=== PATIENT | male | born 1960 | race Hispanic/Latino ===

== ENCOUNTER 2016-12-30 00:31 | Emergency (ER) | payer OTHER ==
[2016-12-30 00:32] VITALS: BMI 32.8
[2016-12-30 01:13] VITALS: BP 126/79; PULSE 80; RESP 16; O2SAT 96
--- NOTE | 2016-12-30 01:53 | C.PDOC ---
History Of Present Illness pt was scratched in left nare by his cat, which has all shots utd. No evidence of bleeding Time Seen by Provider: 12/30/16 01:53 Chief Complaint (Nursing): ENT Problem History Per: Patient History/Exam Limitations: None Onset/Duration Of Symptoms: Hrs Current Symptoms Are (Timing): Still Present Severity: Mild Pain Scale Rating Of: 2 Anticoagulant/Antiplatlet Use?: No Recent Aspirin Use: No Past Medical History Reviewed: Historical Data, Nursing Documentation, Vital Signs Vital Signs: Last Vital Signs Temp 999 F H 12/30/16 01:02 Pulse 80 12/30/16 01:02 Resp 16 12/30/16 01:02 BP 126/79 12/30/16 01:02 Pulse Ox 96 12/30/16 01:53 - Medical History PMH: Anxiety, Depression (H/O SUICIDE ATTEMPT), Fractures (both knees), HTN, Peripheral Edema, Post Traumatic Stress Disorder Denies: Chronic Kidney Disease Family History: States: No Known Family Hx - Social History Hx Alcohol Use: No (DENIED) Hx Substance Use: No (DENIED) - Immunization History Hx Influenza Vaccination: No Hx Pneumococcal Vaccination: No Review Of Systems Constitutional: Negative for: Fever, Chills ENT: Positive for: Nose Pain Physical Exam - Physical Exam Appears: Non-toxic, No Acute Distress Skin: Warm, Dry Nose: No Discharge, No Epistaxis, Other (? small excorition left nare, septal area) ED Course And Treatment O2 Sat by Pulse Oximetry: 96 Disposition Counseled Patient/Family Regarding: Studies Performed, Diagnosis, Need For Followup, Rx Given - Disposition Referrals: Ko Nye MD [Staff Provider] - Casey Mosquera MD [Staff Provider] - Disposition: HOME/ ROUTINE Disposition Time: 01:53 Condition: FAIR Prescriptions: Amoxicillin/Clavulanate [Augmentin 875 MG-125 MG] 1 tab PO BID #14 tab Instructions: Abrasion (ED) - Clinical Impression Clinical Impression: Excoriation
[2016-12-30] MEDS ORDERED: Amoxicillin-Clav 875-125 mg Tab PO STA (01:57)
[2016-12-30] MEDS ORDERED: Amoxicillin-Clav 875-125 mg Tab PO ONE (02:09)
[2016-12-30 02:22] VITALS: TEMP 99
== END 2016-12-30 02:25 | disposition home or self-care (01) ==
LOC: C.ER 00:31
DX: S00.31XA Abrasion of nose, initial encounter (principal); W55.03XA Scratched by cat, initial encounter; Y92.009 Unspecified place in unspecified non-institutional (private) residence as the place of occurrence of the external cause

== ENCOUNTER 2017-08-07 06:29 | Day surgery (SDC) | payer OTHER ==
[2017-08-07 06:57] VITALS: BMI 28.7
[2017-08-07] MEDS ORDERED: Midazolam 2 MG/2 ML VIAL ONE ×2 (08:03→08:43)
[2017-08-07] MEDS ORDERED: Lidocaine Hydrochloride 5 ML INJ ONE (08:03)
[2017-08-07] MEDS ORDERED: Propofol 10 mg/ml Inj (20 ML) ONE (08:03)
[2017-08-07] MEDS ORDERED: Albuterol HFA 90 mcg/actuation (8 g) ONE (08:06)
--- NOTE | 2017-08-07 08:08 | CP.SDSHP ---
Same Day Surgery H & P - History Proposed Procedure: colonoscopy Pre-Op Diagnosis: h/o polyps - Previous Medical/Surgical History Cardiac: Hypertension Comments: depression - Allergies Allergies: Allergies sulfamethoxazole [From Bactrim] Allergy (Verified 08/07/17 06:57) ANAPHYLAXIS trimethoprim [From Bactrim] Allergy (Verified 08/07/17 06:57) ANAPHYLAXIS - Physical Exam General Appearance: NAD Vital Signs: Vital Signs 08/07/17 07:26 Temperature 97.7 F Pulse Rate 63 Respiratory 19 Rate Blood Pressure 102/62 O2 Sat by Pulse 97 Oximetry Mental Status: Alert & Oriented x3 Neuro: WNL Heart: WNL Lungs: WNL GI: WNL - {Optional Preform as Required} Abdomen: WNL - Impression Pt. Evaluated Today:Candidate for Anesthesia & Procedure: Yes - Date & Time Date: 08/07/17 Time: 08:08 Short Stay Discharge - Short Stay Discharge Admitting Diagnosis/Reason for Visit: HX COLON POLYPS Disposition: HOME/ ROUTINE
[2017-08-07 09:11] VITALS: TEMP 96
[2017-08-07 11:19] VITALS: O2SAT 100
[2017-08-07 13:27] VITALS: BP 115/77; PULSE 73; RESP 16
== END 2017-08-07 13:24 | disposition home or self-care (01) ==
LOC: C.ENDO 06:29
PROVIDERS: ATTEND Internal Medicine Gastroenterology
DX: D12.2 Benign neoplasm of ascending colon (principal); Z86.010 Personal history of colon polyps; K64.8 Other hemorrhoids; K57.30 Diverticulosis of large intestine without perforation or abscess without bleeding; D12.5 Benign neoplasm of sigmoid colon; D12.3 Benign neoplasm of transverse colon
CPT/HCPCS: 45380; 88305; J2250; J2704; J7030

== ENCOUNTER 2017-09-22 08:14 | Day surgery (SDC) | payer OTHER ==
[2017-09-17 11:39] VITALS: BMI 28.8
[2017-09-22] MEDS ORDERED: Propofol 10 mg/ml Inj (20 ML) ONE (10:16)
[2017-09-22] MEDS ORDERED: Midazolam 2 MG/2 ML VIAL ONE (10:16)
[2017-09-22] MEDS ORDERED: Bupivacaine HCl 0.5% PF (10 ml) Inj ONE (10:19)
[2017-09-22] MEDS ORDERED: Lidocaine 1% MPF (30 ml) Inj ONE (10:19)
[2017-09-22] MEDS ORDERED: ceFAZolin 1 gm in NS 1 GM/100 ML BAG IVPB ONE (10:30)
[2017-09-22] MEDS ORDERED: Oxycodone/Acetaminophen 5/325 mg Tab PO PRN ×2 (11:28)
[2017-09-22] MEDS: HYDROmorphone 0.5 mg/0.5 ml ISec IVP PRN ×2 (11:30→11:40)
[2017-09-22 12:25] VITALS: TEMP 97
[2017-09-22 13:18] VITALS: BP 123/84; PULSE 66; RESP 18; O2SAT 100
--- NOTE | 2017-09-22 14:49 | RAD ---
Right foot two views History: Status post surgery. Comparison: None available. Findings: Subcutaneous air and swelling seen at the level of the dorsal aspect of the 4th and 5th metatarsal heads suggestive for postsurgical changes. Mild hallux valgus deformity. Bony productive change at the level of the distal fibula. Lucency through the heads of the 4th and 5th proximal phalanges may represent overlying shadows. Clinical correlation. Mild plantar calcaneal spurring. Impression: Postsurgical changes. Clinical correlation.
--- NOTE | 2017-09-22 21:56 | PCM.SURG1 ---
Surgeon's Initial Post Op Note - Surgeon's Notes Surgeon: Dr. Leroy Social Studies Department Chair: Dr. Rylee Macedo Type of Anesthesia: IV Sedation, Local Anesthesia Administered By: Dr. Lopez Pre-Operative Diagnosis: 1) Right foot Lane's Neuroma. 2) Right foot Tailor' s bunion Operative Findings: 4-0 Monocryl, 4-0 Vicryl, 4-0 Prolene Post-Operative Diagnosis: same Operation Performed: 1) Right foot deep transverse intermetatarsal ligament release. 2) Right foot 5th metatarsal head resection Specimen/Specimens Removed: Right foot 5th metatarsal head bone Estimated Blood Loss: EBL {In ML}: 25 Blood Products Given: N/A Drains Used: No Drains Post-Op Condition: Good Date of Surgery/Procedure: 09/22/17 Time of Surgery/Procedure: 09:45
--- NOTE | 2017-09-22 22:00 | PCM.OP ---
Operative Report - Operative Report Date of Surgery/Procedure: 09/22/17 Time of Surgery/Procedure: 09:45 Surgeon: Dr. Leroy Oracle Database Architect: Dr. Rylee Macedo Anesthesia/Sedation: IV sedation and Local Pre-Operative Diagnosis: 1) Right foot neuroma in 3rd inter metatarsal space. 2 ) Right foot painful Tailors bunion deformity Post-Operative Diagnosis: same Indication for Surgery: Indications: The patient is a 57 year-old male with the above diagnoses. The patient signed the consent after careful explanation of risks, benefits, complication and alternatives for surgical procedure. No guarantees were given nor implied. 1g of Ancef IV was given to the pt hour prior to the procedure. NPO status was confirmed prior to taking pt to the OR. Operative Findings: Preparation: The patient was brought to the operating room and placed on the operating room table in supine position. A well-padded pneumatic ankle tourniquet was placed to the patient's Right supramalleolar position. After induction of IV sedation the Right lower extremity was then prepped and draped in usual sterile manner. Esmarch was utilized to exsanguinate the patient's Right lower extremity. Pneumatic ankle tourniquet was then inflated to 250 mmHg and procedure began. Procedure/Operation Description: Procedure:. 1)Right foot open release of deep transverse inter-metatarsal ligament of 3rd interspace. Attention was redirected to the right foot 3rd inter-digital space. Utilizing #15 blade, approximately 1.5cm vertical linear incision was made to the skin between 3rd and 4th digits. Sharp and blunt dissection was carried down with care being taken to identy and retract all neurovascular structures. At this time, the deep transverse inter-metatarsal ligament was visualized through the incision, and was grabbed with hemostat. Next, utilizing small Metsenbaum scissors, the deep transverse intermetatarsal ligament was cut. Immediate laxity of soft tissue structures was noted with increased interspace between 3rd and 4th metatarsal heads. Next, the wound was irrigated with copious amount of sterile normal saline. The skin was then reapproximated and coapted utilizing #4-0 Monocryl in a simple suture technique. 2)Right foot 5th metatarsal head resection. Attention was directed to the dorsal aspect of Right foot 5th metatarsal, where an approximately 3.5cm longitudinal incision was made lateral and parallel to the tendon of the extensor digitorum longus. The incision was then deepened through the subcutaneous tissue with care being taken to identy and retract all vital neurovascular structures. All bleeders wre cauterized as necessary. At this time, a linear dorsal incision was made overlying the 5th metatarsal head. The periosteal incision was reflected medially and lateraly exposing the 5th metatarsal head and shaft into the operating field. Next, utilizing a sagittal saw, the lateral prominence was resected and passed from the operative field. Correction of the deformity was assessed at this time and was noted to be excellent. Rough edges of the 5th metatarsal head was smoothed down with a hand rasp. The wound was then flushed with copious amount of sterile normal saline solution. The periosteal and capsular structures were then reapproximated and coapted utilizing #3-0 vicryl. The subcutaneous tissues were then reapproximated and coapted utilizing #4-0 vicryl. The subcuticular was then reapproximated and coapted utilizing #4-0 Prolene in a simple suture technique. Right lower extremity was dressed with Xeroform, 4x4, Kerlix, and MAGDIEL bandage.. The attending was present during the entire case. Estimated Blood Loss: 10mL Complications: None Discharge & Condition: Postoperative Condition: The patient tolerated the anesthesia and procedure well and was escorted to the recovery room with vital signs stable and neurovascular status intact to the Right foot. This patient will follow up with Dr. Leroy
== END 2017-09-22 14:22 | disposition home or self-care (01) ==
LOC: C.SDS 08:14
PROVIDERS: ATTEND Podiatrist Foot & Ankle Surgery
DX: G57.61 Lesion of plantar nerve, right lower limb (principal); M21.621 Bunionette of right foot; M20.11 Hallux valgus (acquired), right foot
CPT/HCPCS: 28113; 73620; 88305; 88311; J0690; J1170; J2250; J2704; J3010

== ENCOUNTER 2018-04-27 13:12 | Emergency (ER) | payer OTHER ==
[2018-04-27 13:12] VITALS: BMI 28.8
[2018-04-27 13:27] VITALS: BP 138/91; PULSE 69; RESP 18; TEMP 99.3; O2SAT 97
[2018-04-27] MEDS ORDERED: Amoxicillin-Clav 875-125 mg Tab PO STA (13:41)
[2018-04-27] MEDS ORDERED: Tetanus/Diphtheria Toxoids 0.5 ml Syringe IM ONE ×2 (13:41→13:51)
--- NOTE | 2018-04-27 13:43 | C.PDOC ---
History Of Present Illness 58 year old male presents to the ED for evaluation of a dog bit to the right hand today. Patient notes the pet dog was small, unsure of his Tetanus vaccination status. Denies other injuries. Time Seen by Provider: 04/27/18 13:27 Chief Complaint (Nursing): Bite History Per: Patient History/Exam Limitations: no limitations Onset/Duration Of Symptoms: Hrs Current Symptoms Are (Timing): Still Present Past Medical History Reviewed: Historical Data, Nursing Documentation, Vital Signs Vital Signs: Last Vital Signs Temp 99.3 F 04/27/18 13:22 Pulse 69 04/27/18 13:22 Resp 18 04/27/18 13:22 BP 138/91 H 04/27/18 13:22 Pulse Ox 97 04/27/18 13:22 - Medical History PMH: Anxiety, Asthma, Colonic Polyps, Depression (H/O SUICIDE ATTEMPT), Fractures (both knees), HTN, Post Traumatic Stress Disorder, Seizures (LAST SEIZURE JUN 2017) Surgical History: Family History: States: Unknown Family Hx - Social History Hx Alcohol Use: No (DENIED) Hx Substance Use: No (DENIED) - Immunization History Hx Tetanus Toxoid Vaccination: No Hx Influenza Vaccination: No Hx Pneumococcal Vaccination: No Review Of Systems Musculoskeletal: Positive for: Other (dog bite to the right hand.) Physical Exam - Physical Exam Appears: Other (comfortable.) Skin: Warm, Dry Head: Atraumatic, Normacephalic Extremity: Normal ROM (to the digits and wrist. ), Tenderness (mild tenderness to palpation to the right hand. ), Other (Right dorsum: tiny puncture wounds over the right 2nd metacarpal. (-) erythema. (-) discharge.) Pulses: Left Radial: Normal, Right Radial: Normal Neurological/Psych: Oriented x3, Normal Speech, Normal Motor, Normal Sensation, Normal Reflexes Gait: Steady ED Course And Treatment O2 Sat by Pulse Oximetry: 97 (RA) Pulse Ox Interpretation: Normal Progress Note: Patient given Tetanus vaccination and Augmentin. Patient stable for discharge home. Disposition Counseled Patient/Family Regarding: Diagnosis, Need For Followup, Rx Given - Disposition Referrals: Ko Nye MD [Staff Provider] - Disposition: HOME/ ROUTINE Disposition Time: 14:00 Condition: STABLE Additional Instructions: FOLLOW UP WITH YOUR DOCTOR IN 1-2 DAYS USE ANTIBIOTICS UNTIL FINISHED, TAKE WITH FOOD RETURN TO ER IF AREA BECOMES MORE PAINFUL, RED, SWOLLEN, OR YOU DEVELOP FEVER OR DISCHARGE Prescriptions: Amoxicillin/Clavulanate [Augmentin 875 MG-125 MG] 1 tab PO BID #14 tab Ibuprofen [Motrin Tab] 600 mg PO Q6 PRN #30 tab PRN Reason: fever/pain Instructions: Animal Bites (DC) Forms: [employer] (Upper Sorbian) Print Language: MONGOLIAN - Clinical Impression Clinical Impression: Dog bite of right hand
[2018-04-27] MEDS ORDERED: Amoxicillin-Clav 875-125 mg Tab PO ONE (13:51)
== END 2018-04-27 13:53 | disposition home or self-care (01) ==
LOC: C.ER 13:12
DX: S61.451A Open bite of right hand, initial encounter (principal); W54.0XXA Bitten by dog, initial encounter; I10 Essential (primary) hypertension; F43.10 Post-traumatic stress disorder, unspecified; Z23 Encounter for immunization